=== PATIENT | male | born 1980 | race Caucasian/White ===

== ENCOUNTER 2016-10-03 11:00 | Day surgery (SDC) | payer OTHER ==
[2016-10-01 11:12] VITALS: BMI 24.3
[~2016-10-03 11:00] MED LIST: LACTATED RINGERS 1,000 ML IV SCH; LIDOCAINE 1% 20 ML VIAL (10MG/ML) FOR IV START INTRADERMA PRN
[2016-10-03 11:19] VITALS: RESP 16; TEMP 98.2
[2016-10-03] MEDS ORDERED: LIDOCAINE 1% INJ 10MG/ML (20 ML MDV) ONE (12:44)
[2016-10-03] MEDS ORDERED: PROPOFOL 10 MG/ML 20 ML VIAL IV ONE (12:44)
--- NOTE | 2016-10-03 13:10 | P.GSHP ---
History of Present Illness H&P Date: 10/03/16 Chief Complaint: GI bleed This a 35-year-old male who's had issues rectal bleeding. He presents today for colonoscopy. - Constitutional Constitutional: Reports as per HPI Past Medical History Additional Past Medical History / Comment(s): hemorrhoids,injured left knee October 2015 History of Any Multi-Drug Resistant Organisms: None Reported Past Surgical History: No Surgical Hx Reported Additional Past Surgical History / Comment(s): ACL repair lt knee Past Anesthesia/Blood Transfusion Reactions: No Reported Reaction Additional Past Anesthesia/Blood Transfusion Reaction / Comment(s): no hx blood transfusion Past Psychological History: No Psychological Hx Reported Smoking Status: Current every day smoker Past Alcohol Use History: Occasional Additional Past Alcohol Use History / Comment(s): smoked for 10 yrs- 5-6 cigarettes daily Past Drug Use History: Marijuana Additional Drug Use History / Comment(s): uses marijuana every few months - Past Family History Mother Family Medical History: No Reported History Father Family Medical History: No Reported History Medications and Allergies Home Medications Medication Instructions Recorded Confirmed Type Acetaminophen Tab [Tylenol Tab] 1,000 mg PO Q6HR PRN 10/01/16 10/03/16 History Natural Stool Softner 1 cap PO DAILY 10/01/16 10/03/16 History Allergies Allergy/AdvReac Type Severity Reaction Status Date / Time No Known Allergies Allergy Verified 10/01/16 11:08 Surgical - Exam Vital Signs Temp Pulse Resp BP Pulse Ox 98.2 F 75 16 131/85 97 10/03/16 11:16 10/03/16 11:16 10/03/16 11:16 10/03/16 11:16 10/03/16 11:16 - General well developed, no distress - Eyes PERRL - ENT normal pinna - Neck no masses - Respiratory normal expansion - Cardiovascular Rhythm: regular - Abdomen Abdomen: soft, non tender Assessment and Plan Plan: GI bleed. We'll perform colonoscopy
--- NOTE | 2016-10-03 13:25 | P.OP ---
Date of Procedure: 10/03/16 Preoperative Diagnosis: GI bleed Postoperative Diagnosis: Internal and external hemorrhoids Procedure(s) Performed: Colonoscopy Anesthesia: MAC Surgeon: Yuniel Valles Pathology: none sent Condition: stable Disposition: PACU Description of Procedure: The patient's placed on the operating table in the lateral position. He received IV sedation. Digital rectal exam was performed which revealed extensive internal and external hemorrhoids. The flexible colonoscope was then placed patient anus passed throughout the entire colon. The ileocecal valve was visualized. The cecum, ascending and transverse colon appeared normal. The descending and sigmoid colon appeared normal. Scope was then brought back the rectum and this appeared normal. Scope was withdrawn and internal and external Hemorrhoids are noted. Scope was then withdrawn from patient.
[2016-10-03 13:57] VITALS: BP 129/78; PULSE 65
== END 2016-10-03 14:21 | disposition home or self-care (01) ==
LOC: ORWHC2ENDO 11:00
PROVIDERS: ATTEND Surgery
DX: K64.8 Other hemorrhoids (principal); K92.2 Gastrointestinal hemorrhage, unspecified; K64.4 Residual hemorrhoidal skin tags; F17.210 Nicotine dependence, cigarettes, uncomplicated; Z79.899 Other long term (current) drug therapy
CPT/HCPCS: 45378; J2001; J2704

== ENCOUNTER 2016-10-07 06:36 | Day surgery (SDC) | payer OTHER ==
[2016-10-01 10:20] VITALS: BMI 24.3
[~2016-10-07 06:36] MED LIST changes: +FAMOTIDINE 20 MG/2 ML VIAL IV PRN; +HEPARIN SODIUM,PORCINE 5,000 UNIT/ML 1 ML VIAL SQ ONE; +HYDROmorphone 1 MG/ML 1 ML SYRINGE IVP PRN; +MIDAZOLAM 2 MG/2 ML VIAL IV PRN; +ONDANSETRON 4 MG/2 ML VIAL IVP PRN; +Pre Op ABX Message 1 EACH MISC MISCELLANE ONE
[2016-10-07] MEDS ORDERED: NA PHOS,M-B/NA PHOS,DI-BA 133 ML ENEMA RECTAL ONE (07:06)
--- NOTE | 2016-10-07 07:45 | P.GSHP ---
History of Present Illness H&P Date: 10/07/16 Chief Complaint: Rectal bleeding, anal pain This is a 35-year-old male who has extensive history is of internal hemorrhoids. Patient's complaints of the rectal bleeding and pain. He underwent recent colonoscopies found have internal and external hemorrhoids. He presents today for colonoscopy. - Constitutional Constitutional: Reports as per HPI Past Medical History Additional Past Medical History / Comment(s): hemorrhoids,injured left knee October 2015 History of Any Multi-Drug Resistant Organisms: None Reported Past Surgical History: No Surgical Hx Reported Additional Past Surgical History / Comment(s): ACL repair lt knee Past Anesthesia/Blood Transfusion Reactions: No Reported Reaction Additional Past Anesthesia/Blood Transfusion Reaction / Comment(s): no hx blood transfusion Past Psychological History: No Psychological Hx Reported Smoking Status: Current every day smoker Past Alcohol Use History: Occasional Additional Past Alcohol Use History / Comment(s): smoked for 10 yrs- 5-6 cigarettes daily Past Drug Use History: Marijuana Additional Drug Use History / Comment(s): uses marijuana every few months - Past Family History Mother Family Medical History: No Reported History Father Family Medical History: No Reported History Medications and Allergies Home Medications Medication Instructions Recorded Confirmed Type Acetaminophen Tab [Tylenol Tab] 1,000 mg PO Q6HR PRN 10/01/16 10/07/16 History Natural Stool Softner 1 cap PO DAILY 10/01/16 10/07/16 History Allergies Allergy/AdvReac Type Severity Reaction Status Date / Time No Known Allergies Allergy Verified 10/07/16 06:41 Surgical - Exam Vital Signs Temp Pulse Resp BP Pulse Ox 96.9 F L 82 16 127/76 95 10/07/16 06:48 10/07/16 06:48 10/07/16 06:48 10/07/16 06:48 10/07/16 06:48 - General well developed, no distress - Eyes PERRL - ENT normal pinna - Neck no masses - Respiratory normal expansion - Cardiovascular Rhythm: regular - Abdomen Abdomen: soft, non tender - Rectum Significant internal and external hemorrhoids Assessment and Plan Plan: Internal and external hemorrhoids. We'll perform hemorrhoidectomy.
[2016-10-07] MEDS ORDERED: MIDAZOLAM 2 MG/2 ML VIAL ONE (07:49)
[2016-10-07] MEDS ORDERED: KETAMINE 10 MG/ML 20 ML VIAL ONE (07:49)
[2016-10-07] MEDS ORDERED: fentaNYL (PF) 50 MCG/ML 2 ML AMP ONE (07:49)
[2016-10-07] MEDS ORDERED: KETOROLAC 30 MG/ML 1 ML VIAL ONE (07:49)
[2016-10-07] MEDS ORDERED: PROPOFOL 10 MG/ML 20 ML VIAL IV ONE (07:49)
[2016-10-07] MEDS ORDERED: LIDOCAINE 1% INJ 10MG/ML (20 ML MDV) ONE (07:49)
[2016-10-07] MEDS ORDERED: SODIUM CHLORIDE 0.9% 100 ML with ceFAZolin 2,000 MG IV ONE ×2 (08:07)
[2016-10-07] MEDS ORDERED: BUPIVACAIN-EPI 0.5%-1:200,000 30 ML VIAL SQ ONE (08:17)
[2016-10-07] MEDS ORDERED: GELATIN SPONGE,ABSORB (SMALL) 1 EACH SPONGE TOPICAL ONE (08:21)
[2016-10-07] MEDS ORDERED: GELATIN SPONGE,ABSORB (LARGE) 1 EACH SPONGE TOPICAL ONE (08:22)
--- NOTE | 2016-10-07 08:31 | P.OP ---
Date of Procedure: 10/07/16 Preoperative Diagnosis: Internal and external hemorrhoids Postoperative Diagnosis: Internal and external hemorrhoids Procedure(s) Performed: Excision of internal and external hemorrhoids Anesthesia: MAC, local Surgeon: Yuniel Valles Estimated Blood Loss (ml): 5 Pathology: other (Internal and external hemorrhoids) Condition: stable Disposition: PACU Description of Procedure: The patient's placed on the operating table in the prone jackknife position. His anus was prepped and draped usual sterile fashion. The patient had large femoral columns. Using the bivalved anal retractor the left lateral hemorrhoidal column was visualized. Then using an Allis clamp and the Harmonic scissors the hemorrhoid column was dissected. In identical fashion the right anterior and right posterior hemorrhoidal columns were removed. The anus suspected bleeding. Several small bleeding points were coagulated using left cautery and then a piece of Gelfoam was placed anus. Patient top procedure well and was sent to recovery room stable condition.
[2016-10-07 08:42] VITALS: TEMP 97.8
[2016-10-07] MEDS ORDERED: LACTATED RINGERS 1,000 ML IV ONE (09:02)
[2016-10-07 09:29] VITALS: RESP 16
[2016-10-07 09:45] VITALS: BP 136/89; PULSE 71
== END 2016-10-07 10:14 | disposition home or self-care (01) ==
LOC: OR 06:36
PROVIDERS: ATTEND Surgery
DX: K64.8 Other hemorrhoids (principal); K64.4 Residual hemorrhoidal skin tags; F17.210 Nicotine dependence, cigarettes, uncomplicated; Z79.899 Other long term (current) drug therapy
CPT/HCPCS: 88304; 46260; J2250; J1644; J2405; J2001; J3010; J1885; J0690; J2704

== ENCOUNTER 2016-10-14 20:19 | Emergency (ER) | payer OTHER ==
[2016-10-14 20:39] VITALS: BP 127/64; PULSE 74; RESP 20; TEMP 99.2
--- NOTE | 2016-10-14 22:00 | ED ---
General Adult HPI - General Chief complaint: Recheck/Abnormal Lab/Rx Stated complaint: P/O hemorrhoids, pain Time Seen by Provider: 10/14/16 21:23 Source: patient, RN notes reviewed Mode of arrival: ambulatory Limitations: no limitations - History of Present Illness Initial comments: Patient 35-year-old male who presents emergency room today status post thyroidectomy times one week, with a chief complaint of wanting wound recheck. He does admit that he had his first postop check today. He states surgeon was in out of the room quickly. He states everything seemed to be doing well. States had a bowel movement that was between soft and loose stool. He states he felt something different on the right side of the anus area. Patient states he wanted to make sure that over the was okay tonight. He states he is feeling okay and has no other complaints at this time. Patient denies any recent fever, chills, shortness of breath, chest pain, back pain, abdominal pain, nausea or vomiting, numbness or tingling, dysuria or hematuria, constipation or diarrhea, headaches or visual changes, or any other complaints. - Related Data Home Medications Medication Instructions Recorded Confirmed Acetaminophen Tab [Tylenol Tab] 1,000 mg PO Q6HR PRN 10/01/16 10/07/16 Natural Stool Softner 1 cap PO DAILY 10/01/16 10/07/16 Previous Rx's Medication Instructions Recorded HYDROcodone/APAP 7.5-325MG [[place] 1 each PO Q4H PRN #60 tab 10/07/16 7.5] Allergies Allergy/AdvReac Type Severity Reaction Status Date / Time No Known Allergies Allergy Verified 10/14/16 20:39 Review of Systems ROS Statement: Those systems with pertinent positive or pertinent negative responses have been documented in the HPI. ROS Other: All systems not noted in ROS Statement are negative. Past Medical History Additional Past Medical History / Comment(s): hemorrhoids,injured left knee October 2015 History of Any Multi-Drug Resistant Organisms: None Reported Past Surgical History: No Surgical Hx Reported Additional Past Surgical History / Comment(s): ACL repair lt knee, hemrroidecomy 10/07 Past Anesthesia/Blood Transfusion Reactions: No Reported Reaction Additional Past Anesthesia/Blood Transfusion Reaction / Comment(s): no hx blood transfusion Past Psychological History: No Psychological Hx Reported Smoking Status: Current every day smoker Past Alcohol Use History: Occasional Additional Past Alcohol Use History / Comment(s): smoked for 10 yrs- 5-6 cigarettes daily Past Drug Use History: Marijuana Additional Drug Use History / Comment(s): uses marijuana every few months - Past Family History Mother Family Medical History: No Reported History Father Family Medical History: No Reported History General Exam - General Exam Comments Initial Comments: General: The patient is awake and alert, in no distress, and does not appear acutely ill. Eye: Pupils are equal, round and reactive to light, extra-ocular movements are intact. No nystagmus. There is normal conjunctiva bilaterally. No signs of icterus. Ears, nose, mouth and throat: There are moist mucous membranes and no oral lesions. Neck: The neck is supple, there is no tenderness or JVD. Cardiovascular: There is a regular rate and rhythm. No murmur, rub or gallop is appreciated. Respiratory: Lungs are clear to auscultation, respirations are non-labored, breath sounds are equal. No wheezes, stridor, rales, or rhonchi. Gastrointestinal: Soft, non-distended, non-tender abdomen without masses or organomegaly noted. There is no rebound or guarding present. No CVA tenderness. Bowel sounds are unremarkable. Musculoskeletal: Normal ROM, no tenderness. Strength 5/5. Sensation intact. Pulses equal bilaterally 2+. Neurological: A&O x 3. CN II-XII intact, There are no obvious motor or sensory deficits. Coordination appears grossly intact. Speech is normal. Skin: Skin is warm and dry and no rashes or lesions are noted. Psychiatric: Cooperative, appropriate mood & affect, normal judgment. : Normal rectal tone. No bleeding. No open wound. Limitations: no limitations Course Vital Signs 10/14/16 20:36 Temperature 99.2 F Pulse Rate 74 Respiratory 20 Rate Blood Pressure 127/64 O2 Sat by Pulse 98 Oximetry Medical Decision Making - Medical Decision Making Patient advised to follow-up with his surgeon tomorrow morning. Advised return for any other concerns. Disposition Clinical Impression: Postop check Disposition: HOME SELF-CARE Condition: Good Instructions: *Surgery [facility] - Hemorrhoidectomy Discharge Instructions Additional Instructions: Please follow-up surgeon tomorrow morning as discussed. Please return to emergency room for any other concerns. Referrals: Haider Bemrudez MD [Primary Care Provider] - 1-2 days Yuniel Valles MD [STAFF PHYSICIAN] - 1-2 days Time of Disposition: 21:59
== END 2016-10-14 22:25 | disposition home or self-care (01) ==
LOC: SUPCPDRO 20:19 → EC 20:19
DX: Z48.89 Encounter for other specified surgical aftercare (principal); E89.0 Postprocedural hypothyroidism; F17.210 Nicotine dependence, cigarettes, uncomplicated; Z79.899 Other long term (current) drug therapy
CPT/HCPCS: 99282